=== PATIENT | female | born 1965 | race Caucasian/White ===

== ENCOUNTER 2018-02-01 16:14 | Emergency (ER) | payer OTHER ==
[2018-02-01] MEDS ORDERED: Acetaminophen/HYDROcodone 325-5 MG Tab PO ONE (16:57)
--- NOTE | 2018-02-01 17:47 | EDM.PDOC ---
ED HPI GENERAL MEDICAL PROBLEM - General Chief Complaint: Lower Extremity Injury/Pain Stated Complaint: LEFT LEG INJURY Time Seen by Provider: 02/01/18 16:20 Source of Information: Reports: Patient History Limitations: Reports: No Limitations - History of Present Illness INITIAL COMMENTS - FREE TEXT/NARRATIVE: Leticia is an otherwise healthy 52 year old female who presents to the ED today with c/o left posterior thigh pain. Patient was water skiing when she tried to drop a ski and her left leg continued to go forward. Patient has experienced significant pain since that time. Patient did take 600 mg of Advil prior to arrival here with minimal relief. Patient denies any other injuries. Onset: Today, Sudden Left Leg Pain Score (Numeric/FACES): 3 - Related Data Allergies Allergy/AdvReac Type Severity Reaction Status Date / Time codeine AdvReac Nausea Verified 02/01/18 16:34 Home Meds: Home Meds NK [No Known Home Meds] 02/01/18 [History] Past Medical History Genitourinary History: Reports: Renal Calculus WORKING [employer] History: Reports: Dermatologic History: Reports: Eczema - Past Surgical History Female Surgical History: Reports: Lithotripsy/ESWL, Other (See Below) Other Female Surgeries/Procedures: stone retrieval, bladder sling. Social & Family History - Tobacco Use Smoking Status *Q: Never Smoker - Recreational Drug Use Recreational Drug Use: No Review of Systems - Review of Systems Review Of Systems: ROS reveals no pertinent complaints other than HPI. ED EXAM, GENERAL - Physical Exam Exam: See Below Exam Limited By: No Limitations General Appearance: Alert, WD/WN, No Apparent Distress, Moderate Distress ( secondary to pain) Head: Atraumatic Respiratory/Chest: No Respiratory Distress, Normal Breath Sounds Cardiovascular: Regular Rate, Rhythm GI/Abdominal: Normal Bowel Sounds, Soft, Non-Tender Back Exam: Normal Inspection Extremities: Other (tender to palpation to left upper posterior thigh, no malformation, bruising, deformity noted. No pain with hip rock, no pelvis pain on exam. No pain to coccyx or sacrum. No pain to knee or lower thigh. ) Neurological: Alert, Oriented, CN II-XII Intact Psychiatric: Normal Affect, Normal Mood Skin Exam: Warm, Dry, Intact Course - Vital Signs Last Recorded V/S: Last Vital Signs Temp 36.1 C 02/01/18 16:32 Pulse 73 02/01/18 16:32 Resp 16 02/01/18 16:32 BP 133/95 H 02/01/18 16:32 Pulse Ox 99 02/01/18 16:32 Leticia is a 52 year old female who presents to the ED today with c/o left posterior thigh pain after leg was over stretched while water skiing. Please refer to HPI and focused exam. Exam is concerning for hamstring sprain/tear. Patient has pain with weight bearing, significant. Patient has no deformities on exam.She is tender to upper left posterior thigh, medially. CMS intact, strength is 5/5. Xray of femur obtained to rule out any osseous abnormality. Patient given one Davison here with mild improvement in her pain. No other injuries suspected given exam findings. ANDREW wrap applied to thigh from groin to knee and patient was given crutches with non weight bearing or toe touch as tolerated. RICE encouraged. Ibuprofen 600 mg every 6 hours. Davison for severe pain. Narcotic safety discussed. Patient travelling back to [place] [facility] tomorrow, encouraged to contact PCP Sunday to discuss outpatient MRI to evaluate degree of strain/tear. Reasons to return to the ED discussed in detail. Patient and her agreeable to plan of care and patient discharged in stable condition. - Orders/Labs/Meds Orders: Active Orders 24 hr Category Date Time Status Femur Min 2V Lt [CR] Stat Exams 02/01/18 16:58 Taken Meds: Medications Discontinued Medications Generic Name Dose Route Start Last Admin Trade Name Maryjane PRN Reason Stop Dose Admin Hydrocodone Bitart/Acetaminophen 2 tab 02/01/18 16:57 02/01/18 17:08 Davison 325-5 Mg PO 02/01/18 16:58 1 tab ONETIME ONE Administration Departure - Departure Time of Disposition: 18:00 Disposition: Home, Self-Care 01 Clinical Impression: Tear of left hamstring Qualifiers: Encounter type: initial encounter Qualified Code(s): S76.312A - Strain of muscle, fascia and tendon of the posterior muscle group at thigh level, left thigh, initial encounter - Discharge Information Instructions: Hamstring Strain Referrals: PCP,None [Primary Care Provider] - Forms: ED Department Discharge Additional Instructions: Keep Andrew on for compression. Elevate and Ice frequently. Ibuprofen 600 mg every 6 hours for pain/inflammation. Davison for severe pain (Narcotic, do not drive or drink alcohol if you take it). Call primary care provider on Sunday to schedule outpatient MRI Take care, it was nice meeting you, sorry this happened. Safe travels back home. - My Orders Last 24 Hours: My Active Orders 02/01/18 16:58 Femur Min 2V Lt [CR] Stat - Assessment/Plan Last 24 Hours: My Active Orders 02/01/18 16:58 Femur Min 2V Lt [CR] Stat
--- NOTE | 2018-02-04 09:05 | CR ---
Femur Min 2V Lt INDICATION: pain COMPARISON: None FINDINGS: 4 views. No fracture or other acute bony abnormality seen.
== END 2018-02-01 18:05 | disposition home or self-care (01) ==
LOC: JP.ED 16:14
DX: S76.312A Strain of muscle, fascia and tendon of the posterior muscle group at thigh level, left thigh, initial encounter (principal); Z88.5 Allergy status to narcotic agent; X58.XXXA Exposure to other specified factors, initial encounter; Y93.17 Activity, water skiing and wake boarding
CPT/HCPCS: 73552; 99284; A9270